=== PATIENT | male | born 1990 | race Caucasian/White ===

== ENCOUNTER 2020-09-29 09:57 | Outpatient (CLI) | payer OTHER, SELFPAY | END 2020-09-29 09:58 | disposition home or self-care (01) | LOC: ANHSURGERY 10:02 | PROVIDERS: PCP Family Medicine; Visit Provider Urology | DX: R31.0 Gross hematuria (principal); Z01.818 Encounter for other preprocedural examination | CPT/HCPCS: 87077; 87086; 87088; 87186 ==

== ENCOUNTER → 2020-10-01 01:16 | Outpatient (CLI) | payer OTHER, SELFPAY ==
[2020-10-02 00:06] LABS: SARS-CoV-2 RNA PCR Negative
== END ==
PROVIDERS: PCP Family Medicine; Visit Provider Urology
DX: Z01.812 Encounter for preprocedural laboratory examination (principal); Z20.822 Contact with and (suspected) exposure to COVID-19
CPT/HCPCS: C9803; U0003; U0005

== ENCOUNTER 2020-10-04 02:56 | Day surgery (SDC) | payer OTHER, SELFPAY ==
[2020-09-26 13:01] VITALS: BMI 30.4
[2020-10-04] VITALS (8 sets, daily range): BP systolic 101–137; BP diastolic 56–80; PULSE 56–80; RESP 12–18; TEMP 35.9–36.5; O2SAT 97–99
--- NOTE | ~2020-10-04 | XR_ITS ---
EXAMINATION: XR urethrocystogram EXAM DATE: 10/04/2020 10:07 INDICATION: Retrograde urethrogram for stricture. TECHNIQUE: Fluoroscopy used during XR urethrocystogram performed by Dr. Nghia Mahan MD. Radiologist was not present for the imaging or procedure. Total fluoroscopic time of0.4 minutes. A total of 2 images obtained for the exam. The DAP for this procedure was 372 radcm2. FINDINGS: Urethra was injected retrogradely. There is short segment stricture of the urethra in princess on of the penile/bulbous urethral junction. Beyond this stricture the bulbous urethra dilates to a no rmal caliber. Prostatic urethra is also quite narrow but uncertain whether this is actual stricturing or just under distention from lower pressure due to the penile/bulbous junction stricture. Patency c onfirmed, contrast did fill the bladder.. Correlate with procedure note. IMPRESSION: Urethral abnormality(ies) as above. Reviewed, dictated and finalized at location A.
[2020-10-04] MEDS: LACTATED RINGERS 1,000 ML 30 ML IV CONT (08:12)
--- NOTE | 2020-10-04 08:29 | WPDHPUPDATE1 ---
History and Physical Update Update Date/Time: 10/04/20 08:29 History and Physical has been reviewed, including an updated exam of the patient. There are NO changes in the patient's condition. Risks, benefits, and alternatives have been discussed and questions answered. Patient agrees to proceed with procedure.
--- NOTE | 2020-10-04 08:36 | WPDANESEPPF ---
Anes - Initial Pre Proc Eval Procedure: Operation Date: 10/04/20 10:00 Proposed Procedures p Cystoscopy Retrograde Urethrogram, Dilation Of Urethral Stricture - Nghia Mahan MD Date/Time: 10/04/20 08:36 Surgeon: Nghia Mahan MD Pre Op Diagnosis: uretheral stricture, gross hematuria Patient Data Age: 30 Gender: M Height: 5 ft 8 in Weight: 96.2 kg Last Vital Signs Temp 35.9 C L 10/04/20 08:04 Pulse 80 10/04/20 08:04 Resp 18 10/04/20 08:04 BP 137/77 10/04/20 08:04 Pulse Ox 97 10/04/20 08:04 Allergies Allergy/AdvReac Type Severity Reaction Status Date / Time amoxicillin Allergy Unknown Pruritic Verified 10/04/20 08:25 rash Penicillins Allergy Unknown Pruritic Verified 10/04/20 08:25 rash Sulfa (Sulfonamide Allergy Unknown Unknown Verified 10/04/20 08:25 Antibiotics) Home Medications Medication Instructions Recorded Confirmed Type nitrofurantoin monohyd/m-cryst 100 mg PO BID 09/26/20 10/04/20 History Patient hx anesthesia problems: none Family hx anesthesia problems: none [facility] Family History Family History Father Family history of kidney stones Family history of coronary artery disease Social History Social History Smoking status: Never smoker Alcohol intake: current Substance use: never Substance use type: does not use Living arrangements: alone Spiritual care concerns: No Anes - Eval Final PreProcedure Day of Procedure 10/04/20 08:36 Patient weight: obese Heart: regular rate and rhythm Lungs: clear to auscultation Airway: Mallampati scale class II Neurological: alert and oriented Last oral intake: >/= 8 hours ASA classification: II Emergent: no Anesthetic plan: proceed Anesthesia type and monitoring: general LMA and standard monitoring Informed Consent: The patient's anesthetic plan and its attendant risks and benefits were discussed with the patient/family/POA. Questions were solicited and answers provided to the satisfaction of the patient/family/POA.
[2020-10-04] MEDS: LIDOCAINE HCL 2% GEL UROJET 10 ML PKG MUCOUS MEM (09:56)
--- NOTE | 2020-10-04 10:05 | P.OP_ITS ---
Procedure Note - Detailed Date of procedure: 10/04/20 Pre-op diagnosis: uretheral stricture, gross hematuria Post-op diagnosis: same Procedure performed: Retrograde urethrogram, urethral dilation with Amplantz dilators to 22 fr, complex yepez placement, cystocopy Description of procedure: Patient is taken the operative suite and correctly identified. Once anesthesia was obtained was placed in dorsal lithotomy position and prepped and draped usual sterile fashion. Nineteen [place] scope was inserted the meatus. He has a membranous/bulbar urethral stricture. A retrograde urethrogram was then performed by placing a 16 [place] red rubber catheter into the meatus and contrast was injected. Appears at the strictured area is close to 5-6 mm in length. It is close to the external sphincter in addition. At this point we placed a Super Stiff guidewire under direct vision as well as fluoroscopy into the bladder. We then dilated using the dilators up to 22 [place]ic. Cystoscopy was then reperformed. We were able to get the scope all way into the bladder. There were no other tumors were irregularities noted in the bladder. A 18 [place] tip catheter was then passed over the guidewire into the bladder. The balloon was inflated to 10 cc were using normal saline. 2% viscous lidocaine had been inserted into the urethra. Patient is taken recovery room stable condition. Will plan on leaving the Yepez catheter until Saturday if he tolerates it. I will then personally seen in the office approximately 3-4 weeks after the catheter is removed. Anesthesia: GLMA Surgeon: Nghia Mahan MD Drains: Yes Packing: No Pathology: none sent Complications: No immediate complications Condition: stable Disposition: PACU
--- NOTE | 2020-10-04 11:53 | SUR.PHASEII ---
1115: Patient is unhooked from the monitors and getting dressed. He is just waiting for his ride.
== END 2020-10-04 11:53 | disposition home or self-care (01) ==
PROVIDERS: PCP Family Medicine; Visit Provider Urology
PROC: (CPT 52352; principal; 2020-10-04 10:00)
DX: N35.913 Unspecified membranous urethral stricture, male (principal); N35.912 Unspecified bulbous urethral stricture, male; R31.0 Gross hematuria; E66.9 Obesity, unspecified; Z68.32 Body mass index [BMI] 32.0-32.9, adult
CPT/HCPCS: 52281; 51610; 74450; 87077; 87086; 87088; 87186; A9270; C1726; C1769; C1894; C9803; J1100; J2250; J2405; J2704; J3010; J3370; J7120; Q9966; U0003; U0005

== ENCOUNTER → 2021-04-21 02:40 | Outpatient (CLI) | payer OTHER, SELFPAY ==
[2021-04-21 17:01] LABS: SARS-CoV-2 RNA PCR Negative
== END ==
PROVIDERS: PCP Family Medicine; Visit Provider Family Medicine
DX: J06.9 Acute upper respiratory infection, unspecified (principal); Z20.822 Contact with and (suspected) exposure to COVID-19
CPT/HCPCS: C9803; U0003; U0005

== ENCOUNTER 2023-12-17 10:28 | Outpatient (CLI) | payer OTHER, SELFPAY ==
--- NOTE | ~2023-12-17 | XR_ITS ---
[id number] Ordering provider: Marylou Orlando, [place] History: . Ankylosing spondylitis of multiple sites in spine . Comparison: None. FINDINGS: VERTEBRAL BODIES: C6 and C7 and the area of C1-C2 are not well demonstrated.. Normal height and align ment. No visible fracture or subluxation. The dens is intact. DISK SPACES: Narrowing of the disc C3-C4, C4-C5 and C5-C6. PARASPINOUS SOFT TISSUES: No prevertebral soft tissue swelling. IMPRESSION: No definite acute osseous abnormality cervical spine. Reviewed, dictated and finalized at location A.
--- NOTE | ~2023-12-17 | XR_ITS ---
3 VIEWS THORACIC SPINE Ordering provider: Marylou Orlando, PA History: . Ankylosing spondylitis of multiple sites in spine . Comparison: None. FINDINGS: VERTEBRAL BODIES: Increased kyphosis is noted. Bony bridge is seen across the vertebrae anteriorly mayen ggestive of ankylosing spondylitis. Otherwise, Normal height and alignment. No visible fracture or mayen bluxation. DISK SPACES: Normal. SOFT TISSUES: Normal. IMPRESSION: No acute osseous abnormality of the thoracic spine. Highly suggestive of ankylosing spondylitis. Reviewed, dictated and finalized at location A.
--- NOTE | ~2023-12-17 | XR_ITS ---
AP and lateral views of the bilateral hips Clinical history: Pain Findings: No acute fracture or dislocation is seen. Osseous alignment is anatomic. Bilateral hip and SI joint spaces are preserved. Soft tissues are unremarkable. Impression: No significant abnormality is seen. Reviewed, dictated and finalized at [facility]. Impression: No significant abnormality is seen.
--- NOTE | ~2023-12-17 | XR_ITS ---
XR chest 2V Ordering provider: Marylou Orlando, TERRY History: 33 years Male with . Ankylosing spondylitis of multiple sites in spine . Comparison: None. FINDINGS: MEDIASTINUM: The cardiac silhouette is slightly enlarged. LUNGS: No infiltrates, effusions or pneumothorax. Prominent markings in the lower lobes with possible atelectatic changes. OTHER: No free air under the diaphragm. IMPRESSION: Prominent markings in the lower lobes with possible atelectatic changes. Reviewed, dictated and finalized at location A.
--- NOTE | ~2023-12-17 | XR_ITS ---
3 VIEWS LUMBAR SPINE Ordering provider: Marylou Orlando, [place] History: . Ankylosing spondylitis of multiple sites in spine . Comparison: None. FINDINGS: VERTEBRAL BODIES:Bony bridging is seen anteriorly between the vertebrae which is highly suggestive of ankylosing spondylitis. Ossification of the ligaments and the posterior elements area is also noted. Otherwise, No visible fracture or subluxation. DISK SPACES: Normal. SOFT TISSUES: Normal. Bilateral sacroiliitis is noted. Pubic symphysitis is also seen. Bilateral hip osteoarthritic changes . IMPRESSION: No acute osseous abnormality lumbar spine. Highly suggestive of ankylosing spondylitis. Reviewed, dictated and finalized at location A.
== END 2023-12-17 10:29 ==
PROVIDERS: PCP Family Medicine; Visit Provider Physician Assistant Medical
DX: M45.0 Ankylosing spondylitis of multiple sites in spine (principal)
CPT/HCPCS: 71046; 72040; 72070; 72100; 73521